=== PATIENT | male | born 1990 | race American Indian/Alaskan Native ===

== ENCOUNTER 2019-12-11 12:20 | Emergency (ER) | payer SELFPAY ==
[2019-12-11 12:40] VITALS: BP 124/76
--- NOTE | 2019-12-11 13:26 | Emergency Department Report ---
ED General Adult HPI - General Chief complaint: Upper Respiratory Infection Stated complaint: SOB, CHEST PAIN Time Seen by Provider: 12/11/19 13:23 Source: patient Mode of arrival: Ambulatory Limitations: No Limitations - History of Present Illness Initial comments: 29yo BM states that he is experiencing chest tightness and fatigue x 5 days. 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 Severity scale (0 -10): 4 - Related Data Allergies Allergy/AdvReac Type Severity Reaction Status Date / Time No Known Allergies Allergy Unverified 12/11/19 12:35 ED Review of Systems ROS: Stated complaint: SOB, CHEST PAIN Other details as noted in HPI ED Past Medical Hx - Past Medical History Previous Medical History?: No - Surgical History Past Surgical History?: No - Social History Smoking Status: Current Every Day Smoker Substance Use Type: None ED Physical Exam - General Limitations: No Limitations ED Course Vital Signs 12/11/19 12:38 Temperature 98.3 F Pulse Rate 56 L Respiratory 16 Rate Blood Pressure 124/76 [Left] O2 Sat by Pulse 98 Oximetry Critical care attestation.: If time is entered above; I have spent that time in minutes in the direct care of this critically ill patient, excluding procedure time. ED Disposition Condition: Stable
--- NOTE | 2019-12-11 15:58 | Emergency Department Report ---
- General Chief Complaint: Upper Respiratory Infection Stated Complaint: SOB, CHEST PAIN Time Seen by Provider: 12/11/19 13:23 Source: patient Mode of arrival: Ambulatory Limitations: No Limitations - History of Present Illness Initial Comments: 29-year-old F Fijian male resents emerged department complaining of a 5-day history of dry cough, chest pain congestion with itchiness and and erythema to his posterior pharynx and concerned about having a virus and wants to be checked for the safety of his family. Reports no hemoptysis no hematemesis no hematochezia no fever, no malaise MD Complaint: cough, rhinorrhea -: Gradual Severity: mild Quality: dull, aching Consistency: constant Improves With: nothing Worsens With: nothing Associated Symptoms: rhinorrhea, nasal congestion, cough. denies: shortness of breath, abdominal pain, right sweats, weight loss, hoarseness - Related Data Previous Rx's Medication Instructions Recorded Last Taken Type Brompheniramine/Pseudoephed/Dm 10 ml PO Q8HR PRN #240 syrup 12/11/19 Unknown Rx [Tczncjxpue-Sazrkqmkjie-Xk Syr] Allergies Allergy/AdvReac Type Severity Reaction Status Date / Time No Known Allergies Allergy Unverified 12/11/19 12:35 ED Review of Systems ROS: Stated complaint: SOB, CHEST PAIN Other details as noted in HPI Comment: All other systems reviewed and negative ED Past Medical Hx - Past Medical History Previous Medical History?: No - Surgical History Past Surgical History?: No - Social History Smoking Status: Current Every Day Smoker Substance Use Type: None - Medications Home Medications: Home Medications Medication Instructions Recorded Confirmed Last Taken Type Brompheniramine/Pseudoephed/Dm 10 ml PO Q8HR PRN #240 syrup 12/11/19 Unknown Rx [Wziyhougrf-Rgoaywcjutg-Tw Syr] ED Physical Exam - General Limitations: No Limitations General appearance: alert, in no apparent distress - Head Head exam: Present: atraumatic, normocephalic - Eye Eye exam: Present: normal appearance, PERRL, EOMI - ENT ENT exam: Present: mucous membranes moist, other (Nasal congestion red nests bilaterally with clear drainage. Some swelling to the right nasal turbinate. No effusion to the tympanic membrane her posterior pharynx is clear tongue and uvula are midline. No lymphadenopathy) - Neck Neck exam: Present: normal inspection - Respiratory Respiratory exam: Present: normal lung sounds bilaterally. Absent: respiratory distress - Cardiovascular Cardiovascular Exam: Present: regular rate, normal rhythm. Absent: systolic murmur, diastolic murmur, rubs, gallop - GI/Abdominal GI/Abdominal exam: Present: soft, normal bowel sounds - Rectal Rectal exam: Present: deferred - Extremities Exam Extremities exam: Present: normal inspection - Back Exam Back exam: Present: normal inspection - Neurological Exam Neurological exam: Present: alert, oriented X3 - Psychiatric Psychiatric exam: Present: normal affect, normal mood - Skin Skin exam: Present: warm, dry, intact, normal color. Absent: rash ED Course Vital Signs 12/11/19 12:38 Temperature 98.3 F Pulse Rate 56 L Respiratory 16 Rate Blood Pressure 124/76 [Left] O2 Sat by Pulse 98 Oximetry ED Medical Decision Making - Medical Decision Making This 29-year-old -Fijian male patient presents with symptoms suspicious for likely viral upper respiratory tract infection. Differential includes bacterial pneumonia, sinusitis, allergic rhinitis, sinusitis asthma bronchitis. Do not suspect underlying Cardiopulmonary process. I considered but think unlikely dangerous cause of this patient symptoms to include acute coronary syndrome, CHF or COPD exacerbations, pneumonia, pneumothorax. Patient is nontoxic appearing and not in need of emergent medical intervention. Plan: Reassurance, reassessment, hzpb-ajn-bhwdylv medications, discharge with PCP follow-up Critical care attestation.: If time is entered above; I have spent that time in minutes in the direct care of this critically ill patient, excluding procedure time. ED Disposition Clinical Impression: URI (upper respiratory infection) Disposition: - TO HOME OR SELFCARE Is pt being admited?: No Does the pt Need Aspirin: No Condition: Stable Instructions: Upper Respiratory Infection (ED) Prescriptions: Brompheniramine/Pseudoephed/Dm [Jfjlngfmdo-Flllqzvsqzi-Hn Syr] 10 ml PO Q8HR PRN #240 syrup PRN Reason: Cough and congestion Referrals: PRIMARY CARE, [Primary Care Provider] - 3-5 Days [facility] [Provider Group] - 3-5 Days
--- NOTE | 2019-12-11 16:29 | Event Note ---
ED Screening Note Date of service: 12/11/19 Time: 13:10 ED Screening Note: This initial assessment/diagnostic orders/clinical plan/treatment(s) is/are subject to change based on patients health status, clinical progression and re- assessment by fellow clinical providers in the ED. Further treatment and workup at subsequent clinical providers discretion. Patient/guardian urged not to elope from the ED as their condition may be serious if not clinically assessed and managed. Initial orders include: 29yo BM states that he is experiencing chest tightness and fatigue x 5 days. 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
--- NOTE | 2019-12-11 18:22 | XRay Report ---
CHEST 2 VIEWS INDICATION / CLINICAL INFORMATION: cough. COMPARISON: None available. FINDINGS: SUPPORT DEVICES: None. HEART / MEDIASTINUM: No significant abnormality. LUNGS / PLEURA: No significant pulmonary or pleural abnormality. No pneumothorax. ADDITIONAL FINDINGS: No significant additional findings. IMPRESSION: 1. No acute findings. Signer Name: Judy Barrios MD Signed: 12/11/2019 6:17 PM Workstation Name: [id number]
== END 2019-12-11 16:43 | disposition home or self-care (01) ==
LOC: ED 12:20
DX: J02.9 Acute pharyngitis, unspecified (principal); F17.200 Nicotine dependence, unspecified, uncomplicated; Z79.899 Other long term (current) drug therapy
CPT/HCPCS: 71046; 99283

== ENCOUNTER 2019-12-12 10:33 | Emergency (ER) | payer SELFPAY ==
[2019-12-12] MEDS ORDERED: KETOROLAC 60 MG/2 ML INJ IM ONE (10:45)
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
--- NOTE | 2019-12-12 11:55 | XRay Report ---
LEFT FOOT 3 VIEWS INDICATION / CLINICAL INFORMATION: Left foot pain after heavy object dropped on foot. Associated small laceration and bruising. COMPARISON: None available. FINDINGS: BONES and JOINT(S): No acute fracture or subluxation. No significant arthritis. SOFT TISSUES: No significant abnormality. ADDITIONAL FINDINGS: None. IMPRESSION: 1. No acute findings. Signer Name: Willis Pinon MD Signed: 12/12/2019 11:51 AM Workstation Name: [id number]
[2019-12-12] MEDS ORDERED: HYDROcodone/ACETAMINOPHEN 5-325 MG TAB PO ONE (12:07)
[2019-12-12] MEDS ORDERED: HYDROcodone/ACETAMINOPHEN 7.5-325MG TAB PO ONE (12:09)
[2019-12-12 12:24] VITALS: BP 140/90
== END 2019-12-12 12:43 | disposition home or self-care (01) ==
LOC: ED 10:33
DX: S90.32XA Contusion of left foot, initial encounter (principal); I10 Essential (primary) hypertension; F17.200 Nicotine dependence, unspecified, uncomplicated; Z79.899 Other long term (current) drug therapy; W22.8XXA Striking against or struck by other objects, initial encounter; Y93.89 Activity, other specified; Y92.89 Other specified places as the place of occurrence of the external cause; Y99.8 Other external cause status
CPT/HCPCS: 73630; 96372; 99284; J1885

== ENCOUNTER 2020-07-24 16:50 | Emergency (ER) | payer OTHER ==
[2020-07-24] MEDS ORDERED: MORPHINE 4 MG/1 ML INJ IV ONE (18:12)
[2020-07-24] MEDS ORDERED: ONDANSETRON 4 MG/2 ML INJ IV ONE ×2 (18:12→20:46)
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
[2020-07-24 18:36] VITALS: BP 132/87
[2020-07-24 19:05] LABS: BUN/Creatinine Ratio 13; Blood Urea Nitrogen 14 mg/dL (9-20); Calcium 8.8 mg/dL (8.4-10.2); Hemolysis Index 6
[2020-07-24] MEDS ORDERED: diphenhydrAMINE 50 MG/ML VIAL ONE (20:44)
[2020-07-24] MEDS ORDERED: ONDANSETRON 4 MG/2 ML INJ ONE (20:44)
[2020-07-24] MEDS ORDERED: diphenhydrAMINE 50 MG/ML VIAL IV ONE (20:46)
[2020-07-24] MEDS ORDERED: tiZANidine TAB 4 MG TAB PO ONE (20:51)
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
== END 2020-07-24 22:58 | disposition home or self-care (01) ==
LOC: ED 16:50
DX: S09.90XA Unspecified injury of head, initial encounter (principal); M54.2 Cervicalgia; R07.89 Other chest pain; R10.9 Unspecified abdominal pain; M54.6 Pain in thoracic spine; Z79.1 Long term (current) use of non-steroidal anti-inflammatories (NSAID); Z79.899 Other long term (current) drug therapy; V89.2XXA Person injured in unspecified motor-vehicle accident, traffic, initial encounter; Y93.89 Activity, other specified; Y92.410 Unspecified street and highway as the place of occurrence of the external cause; Y99.8 Other external cause status
CPT/HCPCS: 36415; 70450; 71260; 72125; 72128; 72131; 74177; 80048; 96374; 96375; 96376; 99284; J1200; J2270; J2405; Q9967

== ENCOUNTER 2020-08-04 10:35 | Emergency (ER) | payer OTHER ==
[2020-08-04 11:21] VITALS: BP 148/66
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
== END 2020-08-04 12:30 | disposition left against medical advice (07) ==
LOC: ED 10:35
DX: Z00.00 Encounter for general adult medical examination without abnormal findings (principal); Z53.21 Procedure and treatment not carried out due to patient leaving prior to being seen by health care provider